=== PATIENT | female | born 1970 | race Caucasian/White ===

== ENCOUNTER 2016-09-13 14:05 | Emergency (ER) | payer SELFPAY ==
[~2016-09-13] VITALS: Ht 170.2 cm; Wt 86.2 kg
--- NOTE | 2016-09-13 14:05 | NUR ---
Patient was BIBA at this time.
--- NOTE | 2016-09-13 14:09 | NUR ---
Patient taken to bed 02 via gurney per EMS.
[2016-09-13 14:10] VITALS: BP 132/77
--- NOTE | 2016-09-13 14:17 | NUR ---
Patients at bedside.
--- NOTE | 2016-09-13 14:29 | NUR ---
Dr. Dotson evaluating patient at bedside.
--- NOTE | 2016-09-13 14:30 | NUR ---
PATIENT ELOPED FROM FACILITY. DISCHARGE INSTRUCTIONS NOT GIVEN TO PATIENT. DR. FUNK NOTIFIED.
== END 2016-09-13 14:30 | disposition left against medical advice (07) ==
LOC: MED 14:05
DX: R10.9 Unspecified abdominal pain (principal)
CPT/HCPCS: 81002; 81025; 99283